=== PATIENT | female | born 2000 | race Caucasian/White ===

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

== ENCOUNTER 2021-03-02 18:32 | Emergency (ER) | payer SELFPAY ==
[2021-03-02 18:32] VITALS: BP_SYST 105
[~2021-03-02 18:32] MED LIST: CYCL10TA24 PO; KETO10TA2 PO
--- NOTE | 2021-03-02 18:33 | NUR ---
BROUGHT BACK TO OUTSIDE TRIAGE TENT AND TRIAGED. PT IS HERE WITH FAMILY ALL TO BE SEEN BY MD. AWAITING AVAILABLE ER BED.
--- NOTE | 2021-03-02 19:31 | NUR ---
Per hospice admitting clerk, pt LWBS.
== END 2021-03-02 19:31 | disposition left against medical advice (07) ==
LOC: SED 18:32
DX: Z20.822 Contact with and (suspected) exposure to COVID-19 (principal); Z53.21 Procedure and treatment not carried out due to patient leaving prior to being seen by health care provider